=== PATIENT | female | born 1985 | race Caucasian/White ===

== ENCOUNTER 2017-07-22 16:22 | Emergency (ER) | payer BC ==
--- NOTE | 2017-07-22 16:57 | PDOC ---
Rapid Medical Evaluation Time Seen by Provider: 07/22/17 16:51 Medical Evaluation: Allergies Allergy/AdvReac Type Severity Reaction Status Date / Time No Known Allergies Allergy Verified 05/31/16 18:19 07/22/17 16:56 Pt c/o: cough x 2 weeks, unrelieved with zpak, no fever, no chills, no difficulty breathing but states mid sternal tightness with deep breathing and movement Pt on brief exam: lcta, vss Pt ordered for : none Pt to proceed to the ED Discharge Disposition - Diagnosis Cough - Referrals - Patient Instructions - Post Discharge Activity
[2017-07-22 17:00] VITALS: BP 121/81; PULSE 74; TEMP 98; BMI 25.7
[2017-07-22] MEDS ORDERED: ACETAMINOPHEN 500 MG TABLET (FP) PO ONE (17:50)
--- NOTE | 2017-07-22 18:17 | PDOC ---
History of Present Illness - General Chief Complaint: Cold Symptoms Stated Complaint: COLD SYMPTOMS Time Seen by Provider: 07/22/17 16:51 History Source: Patient Exam Limitations: No Limitations - History of Present Illness Initial Comments: 07/22/17 18:46 Patient came for evaluation of persistent cough 2 weeks. was visiting [id number] who was in the hospital currently with pneumonia and developed a cough. was seen at 3 days ago at an urgent care and was given azithromycin and prednisone. has 2 more days of that treatment and does not feel any improvement. Denies fever, denies any cough with phlegm production although has frequent moist cough and a frontal headache Timing/Duration: reports: just prior to arrival Severity: reports: mild, moderate Associated Symptoms: reports: cough, fever/chills, headache, nasal congestion. denies: nasal drainage, sore throat Past History - Travel Traveled outside of the country in the last 30 days: No Close contact w/someone who was outside of country & ill: No - Past Medical History Allergies/Adverse Reactions: Allergies Allergy/AdvReac Type Severity Reaction Status Date / Time No Known Allergies Allergy Verified 07/22/17 16:58 Home Medications: Ambulatory Orders Albuterol Sulfate [Proventil HFA Inhaler -] 1 - 2 inh PO QID #1 inhaler - Suicide/Smoking/Psychosocial Hx Smoking History: Never smoked Have you smoked in the past 12 months: No Hx Alcohol Use: Yes Drug/Substance Use Hx: No Review of Systems - Review of Systems Able to Perform ROS?: Yes Is the patient limited Azeri proficient: Yes Constitutional: Yes: Symptoms Reported, See HPI, Malaise. No: Fever HEENTM: Yes: Symptoms Reported, Nose Congestion. No: Throat Pain, Difficulty Swallowing Respiratory: Yes: Symptoms reported, See HPI, Cough, Shortness of Breath. No: Wheezing Musculoskeletal: Yes: Symptoms Reported All Other Systems: Reviewed and Negative *Physical Exam - Vital Signs Last Vital Signs Temp Pulse Resp BP Pulse Ox 98.0 F 74 18 121/81 100 07/22/17 16:58 07/22/17 16:58 07/22/17 16:58 07/22/17 16:58 07/22/17 16:58 - Physical Exam General Appearance: Yes: Nourished, Appropriately Dressed, Apparent Distress, Mild Distress HEENT: positive: PEDRO, Normal ENT Inspection, TMs Normal, Nasal Congestion, Rhinorrhea, Sinus Tenderness, Other (copious posterior sinus drainage wait in color). negative: Pharyngeal Erythema Neck: negative: Tender Respiratory/Chest: positive: Lungs Clear (congested but landmarks easily visualized), Normal Breath Sounds. negative: Wheezing Gastrointestinal/Abdominal: positive: Soft. 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 We will continue Proventil inhalation, have complete course of prednisone and Zithromax and have follow-up with PMD in one to 2 days for reevaluation *DC/Admit/Observation/Transfer Diagnosis at time of Disposition: Cough - Discharge Dispostion Disposition: HOME Condition at time of disposition: Stable Admit: No - Referrals Referrals: Liliam Fall [Staff Physician] - - Patient Instructions Printed Discharge Instructions: DI for Viral Upper Respiratory Infection -- Adult Additional Instructions: Rest, drink lots of fluids: Teas, water, soups, Pedialyte Saltwater gargles Steamy showers/seem to face break up mucus Avoid contact with others until fevers and cough resolved Lots of handwashing and good hygiene Continue [id number]-epetuyl medications for symptomatic relief Tylenol or Motrin for fever and pain Continue albuterol nebulizers every 4-6 hours for the next 2 days then as needed for continued cough Prednisone as directed until completed Continue Zithromax as directed Followup with private physician in one to 2 days Return to emergency department / pediatric hospital for worsened symptoms, fevers, dehydration - Post Discharge Activity Forms/Work/School Notes: Back to Work
[2017-07-22] MEDS ORDERED: ALBUTEROL SO4 2.5/IPRATROPIUM 0.5 INH SOL 3 ML VIAL.NEB. NEB ONE ×2 (18:30→18:37)
== END 2017-07-22 19:15 | disposition home or self-care (01) ==
LOC: JERFT 16:22
PROC: 3E0F7GC Introduction of Other Therapeutic Substance into Respiratory Tract, Via Natural or Artificial Opening (ICD-10-PCS; principal; 2017-07-22)
DX: J06.9 Acute upper respiratory infection, unspecified (principal); B97.89 Other viral agents as the cause of diseases classified elsewhere
CPT/HCPCS: 71046-TC-FY; 84703; 99281-25

== ENCOUNTER 2020-08-13 19:34 | Emergency (ER) | payer BC ==
[2020-08-13 19:49] VITALS: BP 111/71; PULSE 58; TEMP 99; BMI 25.5
[2020-08-13] MEDS ORDERED: SODIUM CHLORIDE 1,000 ML IV STA (21:38)
[2020-08-13] MEDS ORDERED: ONDANSETRON 4 MG/2 ML VIAL IVPUSH ONE (21:45)
[2020-08-13] MEDS ORDERED: RANITIDINE HCL 150 MG/10 ML UNIT-DOSE PO ONE (21:57)
[2020-08-13] MEDS ORDERED: ONDANSETRON 4 MG/2 ML VIAL ONE (22:07)
[2020-08-13 22:51] LABS: BASO % 0.3 % (0-2.0); EOS % 0.4 % (0-4.5); HEMATOCRIT 42.2 % (32.4-45.2); HEMOGLOBIN 13.9 GM/dL (10.7-15.3); LYMPH % 22.9 % (8-40); MCH 30.5 pg (25.7-33.7); MCHC 32.9 g/dl (32.0-36.0); MEAN CELL VOLUME 92.8 fl (80-96); MEAN PLT VOLUME 9.4 fl (7.5-11.1); MONO % 5.4 % (3.8-10.2); PLATELET COUNT 260 K/MM3 (134-434); RBC 4.54 M/mm3 (3.60-5.2); RDW 13.4 % (11.6-15.6); WHITE BLOOD COUNT 12.2 K/mm3 (4.0-10.0)
[2020-08-13 22:59] LABS: INR 1.03 (0.83-1.09); PROTHROMBIN TIME (PATIENT) 12.7 SEC (9.7-13.0)
[2020-08-13 23:01] LABS: ACTIVATED PTT 29.1 SECONDS (25.2-36.5)
[2020-08-13 23:15] LABS: CALCIUM 9.8 mg/dL (8.5-10.1)
[2020-08-13 23:16] LABS: ALBUMIN 4.1 g/dl (3.4-5.0); BLOOD UREA NITROGEN 7.2 mg/dL (7-18)
[2020-08-13 23:19] LABS: CREATININE 0.6 mg/dL (0.55-1.3)
[2020-08-13 23:21] LABS: BILIRUBIN,TOTAL 0.3 mg/dL (0.2-1); TOT PROT 7.2 g/dl (6.4-8.2)
[2020-08-13] MEDS ORDERED: FAMOTIDINE 40 MG/5 ML ORAL SUSPENSION PO ONE (23:30)
[2020-08-14 00:08] LABS: PH,URINE 7.5 (5.0-8.0); URINE APPEARANCE CLEAR; URINE BILIRUBIN NEGATIVE (NEGATIVE); URINE COLOR YELLOW; URINE GLUCOSE (UA) NEGATIVE (NEGATIVE); URINE KETONE TRACE (NEGATIVE); URINE LEUK ESTERASE NEGATIVE (NEGATIVE); URINE NITRITE NEGATIVE (NEGATIVE); URINE PROTEIN NEGATIVE (NEGATIVE); URINE UROBILINOGEN 0.2 mg/dL (0.2-1.0)
[2020-08-14] MEDS ORDERED: RANITIDINE HCL 150 MG/10 ML UNIT-DOSE PO ONE (00:10)
== END 2020-08-14 00:42 | disposition home or self-care (01) ==
LOC: JER 19:34
PROC: 3E033GC Introduction of Other Therapeutic Substance into Peripheral Vein, Percutaneous Approach (ICD-10-PCS; principal; 2020-08-13)
PROC: 3E0337Z Introduction of Electrolytic and Water Balance Substance into Peripheral Vein, Percutaneous Approach (ICD-10-PCS; 2020-08-13)
DX: O21.1 Hyperemesis gravidarum with metabolic disturbance (principal); R10.2 Pelvic and perineal pain; Z3A.10 10 weeks gestation of pregnancy
CPT/HCPCS: 36415; 76801-TC; 80053; 81003; 84702; 85025; 85610; 85730; 86850; 86900; 86901; 99285-25